=== PATIENT | male | born 2000 | race Caucasian/White ===

== ENCOUNTER 2022-05-02 10:00 | Emergency (ER) | payer OTHER, SELFPAY ==
[2022-05-02] MEDS ORDERED: KETOROLAC 30 MG/ML INJ ONE (10:49)
[2022-05-02] MEDS ORDERED: ONDANSETRON 4 MG/2 ML VIAL ONE (10:49)
[2022-05-02] MEDS ORDERED: NA CHLORIDE 0.9% 500 ML ONE (10:49)
--- NOTE | 2022-05-02 11:36 | RAD REPORT ---
EXAM DESCRIPTION: MRI - Lumbar Spine Mark Koch - 05/02/2022 11:27 am CLINICAL HISTORY: Lower back pain, infection suspected COMPARISON: None. TECHNIQUE: Sagittal T1-weighted, T2-weighted and T2-STIR weighted sequences were obtained. Axial T1 -weighted and heavily T2-weighted sequenceswere obtained through the lumbar disc levels. FINDINGS: Lumbar bodies are normal in height and alignment. No suspicious marrow signal. No paraspin al masses. Conus is normal with no clumping or thickening of the cauda equina. T12-L1 level: No significant findings. L1-2 level: No significant findings. L2-3 level: No significant findings. L3-4 level: No significant findings. L4-5 level: No significant findings. L5-S1 level: No significant findings. IMPRESSION: Lumbar spine MRI is within normal limits. Specifically, no evidence of discitis/osteomye litis.
[2022-05-02 12:05] LABS: Albumin 4.7 g/dL (3.4-5.0); Bilirubin Total 0.7 mg/dL (0.2-1.0); Potassium 3.5 mmol/L (3.5-5.1); Protein, Total 7.8 g/dL (6.4-8.2)
[2022-05-02 12:12] LABS: Absolute Lymphocytes (CBC) 0.2 K/uL (0.7-4.9); Hematocrit 47.1 % (39.6-49.0); Lymphocytes % 3.6 % (15.3-44.8); MCV 84.3 fL (80-100); MPV 9.1 fL (7.6-11.3); RBC Red Blood Cell Count 5.59 M/uL (4.33-5.43)
[2022-05-02 13:09] LABS: Urine Blood Negative (Negative); Urine Glucose Negative (Negative); Urine Protein Negative (Negative); Urine Specific Gravity >=1.030 (1.005-1.030)
[2022-05-02] MEDS ORDERED: HYDROCODONE/APAP 7.5/325 MG TAB ONE (13:45)
--- NOTE | 2022-05-02 14:46 | EDPHYS ---
Physician Documentation [facility] Name: Luisito Becker Age: 21 yrs Sex: Male : 2000 Arrival Date: 05/02/2022 Time: 10:02 Bed 24 Private MD: ED Physician Edilson Ramos HPI: 05/02 10:44 This 21 yrs old Male presents to ER via Ambulatory with complaints of Abdominal Pain, kdr Vomiting, Back Pain. 10:44 Patient states that he has had acute onset of low back pain that began this morning. He kdr has not had this kind of pain before. He denies any fall injury or trauma. He states he may have had a subjective fever. 17:00 Onset: The symptoms/episode began/occurred this morning. Severity of symptoms: At their kdr worst the symptoms were moderate in the emergency department the symptoms are unchanged. The patient has not experienced similar symptoms in the past. The patient has not recently seen a physician. Historical: - Allergies: 10:14 No Known Allergies; vg1 - PMHx: 10:14 Depressive disorder; Anxiety; vg1 - PSHx: 10:14 None; vg1 - Immunization history:: Client reports having NOT received the Covid vaccine. - Social history:: Smoking status: Patient reports the use of cigarette tobacco products, denies chronic smoking, but will smoke occasionally, Reported history of juuling and/or vaping. ROS: 17:00 Constitutional: Negative for fever, chills, and weight loss, Eyes: Negative for injury, kdr pain, redness, and discharge, ENT: Negative for injury, pain, and discharge, Neck: Negative for injury, pain, and swelling, Cardiovascular: Negative for chest pain, palpitations, and edema, Respiratory: Negative for shortness of breath, cough, wheezing, and pleuritic chest pain, Abdomen/GI: Negative for abdominal pain, nausea, vomiting, diarrhea, and constipation, : Negative for injury, bleeding, discharge, and swelling, MS/Extremity: Negative for injury and deformity, Skin: Negative for injury, rash, and discoloration, Neuro: Negative for headache, weakness, numbness, tingling, and seizure activity. Psych: Negative for depression, anxiety, suicide ideation, homicidal ideation, and hallucinations, Allergy/Immunology: Negative for hives, rash, and allergies, Endocrine: Negative for neck swelling, polydipsia, polyuria, polyphagia, and marked weight changes, Hematologic/Lymphatic: Negative for swollen nodes, abnormal bleeding, and unusual bruising. 17:00 Back: Positive for pain at rest, pain with movement. Exam: 17:27 Constitutional: This is a well developed, well nourished patient who is awake, alert, kdr and in no acute distress. Head/Face: Normocephalic, atraumatic. Eyes: Pupils equal round and reactive to light, extra-ocular motions intact. Lids and lashes normal. Conjunctiva and sclera are non-icteric and not injected. Cornea within normal limits. Periorbital areas with no swelling, redness, or edema. Neck: Trachea midline, no thyromegaly or masses palpated, and no cervical lymphadenopathy. Supple, full range of motion without nuchal rigidity, or vertebral point tenderness. No Meningismus. Chest/axilla: Normal chest wall appearance and motion. Nontender with no deformity. No lesions are appreciated. Cardiovascular: Regular rate and rhythm with a normal S1 and S2. No gallops, murmurs, or rubs. Normal PMI, no JVD. No pulse deficits. Respiratory: Lungs have equal breath sounds bilaterally, clear to auscultation and percussion. No rales, rhonchi or wheezes noted. No increased work of breathing, no retractions or nasal flaring. Abdomen/GI: Soft, non-tender, with normal bowel sounds. No distension or tympany. No guarding or rebound. No evidence of tenderness throughout. Skin: Warm, dry with normal turgor. Normal color with no rashes, no lesions, and no evidence of cellulitis. MS/ Extremity: Pulses equal, no cyanosis. Neurovascular intact. Full, normal range of motion. Neuro: Awake and alert, GCS 15, oriented to person, place, time, and situation. Cranial nerves II-XII grossly intact. Motor strength 5/5 in all extremities. Sensory grossly intact. Cerebellar exam normal. Normal gait. Psych: Awake, alert, with orientation to person, place and time. Behavior, mood, and affect are within normal limits. 17:27 Back: pain, that is moderate, of the low back area, ROM is painful, with flexion, normal spinal alignment noted, CVA tenderness, is absent, muscle spasm, is not present, Straight leg raises: pain bilaterally. Vital Signs: 10:13 BP 136 / 78; Pulse 86; Resp 18; Temp 98.1(O); Pulse Ox 100% on R/A; Weight 65.77 kg; vg1 Height 5 ft. 11 in. (180.34 cm); Pain 10/10; 11:52 BP 118 / 57; Pulse 75; Pulse Ox 100% ; ap3 13:35 BP 119 / 60; Pulse 63; Pulse Ox 100% on R/A; ap3 14:44 BP 110 / 51; Pulse 85; Pulse Ox 100% on R/A; ap3 10:13 Body Mass Index 20.22 (65.77 kg, 180.34 cm) vg1 MDM: 14:46 Patient medically screened. kdr 17:27 Data reviewed: vital signs, nurses notes, lab test result(s), radiologic studies. kdr Counseling: I had a detailed discussion with the patient and/or guardian regarding: the historical points, exam findings, and any diagnostic results supporting the discharge/admit diagnosis, lab results, radiology results, the need for outpatient follow up. 05/02 10:19 Order name: CBC with Diff; Complete Time: 12:20 kdr 05/02 10:19 Order name: CMP; Complete Time: 12:20 kdr 05/02 10:19 Order name: Lipase; Complete Time: 12:20 kdr 05/02 10:35 Order name: MRI Lumbar Spine wo Con; Complete Time: 12:20 kdr 05/02 13:09 Order name: Urine Dipstick-Ancillary; Complete Time: 13:15 EDMS 05/02 10:19 Order name: IV Saline Lock; Complete Time: 10:32 kdr 05/02 10:19 Order name: Labs collected and sent; Complete Time: 11:07 kdr Administered Medications: 10:49 Drug: Ketorolac 15 mg Route: IVP; Site: right forearm; ap3 13:18 Follow up: Response: No adverse reaction ap3 10:49 Drug: NS 0.9% 500 ml Route: IV; Rate: bolus; Site: right forearm; ap3 15:06 Follow up: IV Status: Completed infusion ap3 10:49 Drug: Zofran (Ondansetron) 4 mg Route: IVP; Site: right forearm; ap3 13:18 Follow up: Response: No adverse reaction ap3 15:06 Follow up: Response: No adverse reaction ap3 13:43 Drug: [place] (HYDROcodone-acetaminophen) (7.5 mg-325 mg) 1 tabs Route: PO; ap3 15:06 Follow up: Response: No adverse reaction ap3 Disposition Summary: 05/02/22 14:46 Discharge Ordered Location: Home kdr Problem: new kdr Symptoms: have improved kdr Condition: Stable kdr Diagnosis - Low back pain kdr Followup: kdr - With: Private Physician - When: 2 - 3 days - Reason: If symptoms return, Further diagnostic work-up, Recheck today's complaints, Continuance of care, Re-evaluation by your physician Discharge Instructions: - Discharge Summary Sheet kdr - Acute Back Pain, Adult kdr - Musculoskeletal Pain kdr - Back Exercises, [id number] kdr Forms: - Medication Reconciliation Form kdr - Thank You Letter kdr Prescriptions: - Ibuprofen 600 mg Oral Tablet - take 1 tablet by ORAL route every 6 hours As needed take with food; 30 tablet; kdr Refills: 0, Product Selection Permitted Signatures: Dispatcher [employer] EDMS Edilson Ramos MD MD kdr Eva Sesay RN RN ap3 Ludmila Moreno RN RN vg1 Corrections: (The following items were deleted from the chart) 12:55 10:34 Spine Lumbar Wo Con+CT.RAD.BRZ ordered. EDMS EDMS
--- NOTE | 2022-05-02 14:46 | ER ---
Nurse's Notes [facility] Name: Luisito Becker Age: 21 yrs Sex: Male : 2000 Arrival Date: 05/02/2022 Time: 10:02 Bed 24 Private MD: Diagnosis: Low back pain Presentation: 05/02 10:13 Chief complaint: Patient states: back pain and NV began this morning, denies ABD pain, vg1 denies burning upon urination or blood in urine, last BM was yesterday. Coronavirus screen: Vaccine status: Patient reports being unvaccinated. Client denies travel out of the [place] in the last 14 days. Ebola Screen: Patient denies exposure to infectious person. Patient denies travel to an Ebola-affected area in the 21 days before illness onset. Initial Sepsis Screen: Does the patient meet any 2 criteria? No. Patient's initial sepsis screen is negative. Does the patient have a suspected source of infection? No. Patient's initial sepsis screen is negative. Risk Assessment: Do you want to hurt yourself or someone else? Patient reports no desire to harm self or others. Onset of symptoms was May 02, 2022. 10:13 Method Of Arrival: Ambulatory vg1 10:13 Acuity: JENNIFER 3 vg1 Triage Assessment: 10:14 General: Appears uncomfortable, Behavior is cooperative, anxious. Pain: Complains of vg1 pain in back. GI: Abdomen is flat, Reports nausea, vomiting. Historical: - Allergies: 10:14 No Known Allergies; vg1 - PMHx: 10:14 Depressive disorder; Anxiety; vg1 - PSHx: 10:14 None; vg1 - Immunization history:: Client reports having NOT received the Covid vaccine. - Social history:: Smoking status: Patient reports the use of cigarette tobacco products, denies chronic smoking, but will smoke occasionally, Reported history of juuling and/or vaping. Screenin:51 Abuse screen: Denies threats or abuse. Nutritional screening: No deficits noted. ap3 Tuberculosis screening: No symptoms or risk factors identified. Fall Risk No fall in past 12 months (0 pts). Assessment: 10:50 General: Appears distressed, uncomfortable, Behavior is anxious, restless. Pain: ap3 Complains of pain in back Pain currently is 10 out of 10 on a pain scale. Neuro: Level of Consciousness is awake, alert, obeys commands, Oriented to person, place, time, situation. Cardiovascular: Patient's skin is warm and dry. Respiratory: Airway is patent Respiratory effort is even, unlabored. Musculoskeletal: Reports pain in low back area. 10:51 GI: Bowel sounds present X 4 quads. Abd is non tender Reports nausea, vomiting. ap3 11:48 Reassessment: Patient and/or family updated on plan of care and expected duration. Pain ap3 level reassessed. Patient is alert, oriented x 3, equal unlabored respirations, skin warm/dry/pink. Patient states feeling better. Patient states symptoms have improved. 13:35 Reassessment: No changes from previously documented assessment. Patient and/or family ap3 updated on plan of care and expected duration. Pain level reassessed. Patient is alert, oriented x 3, equal unlabored respirations, skin warm/dry/pink. 14:44 Reassessment: No changes from previously documented assessment. Patient and/or family ap3 updated on plan of care and expected duration. Pain level reassessed. Vital Signs: 10:13 BP 136 / 78; Pulse 86; Resp 18; Temp 98.1(O); Pulse Ox 100% on R/A; Weight 65.77 kg; vg1 Height 5 ft. 11 in. (180.34 cm); Pain 10/10; 11:52 BP 118 / 57; Pulse 75; Pulse Ox 100% ; ap3 13:35 BP 119 / 60; Pulse 63; Pulse Ox 100% on R/A; ap3 14:44 BP 110 / 51; Pulse 85; Pulse Ox 100% on R/A; ap3 10:13 Body Mass Index 20.22 (65.77 kg, 180.34 cm) vg1 ED Course: 10:02 Patient arrived in ED. mr 10:05 Edilson Ramos MD is Attending Physician. kdr 10:14 Triage completed. vg1 10:14 Arm band placed on. vg1 10:16 Eva Sesay, MORELIA is Primary Nurse. ap3 10:39 Inserted saline lock: 22 gauge in right forearm, using aseptic technique. ap3 10:51 Patient has correct armband on for positive identification. Bed in low position. Call ap3 light in reach. Side rails up X 1. Adult w/ patient. Pulse ox on. NIBP on. Door closed. Noise minimized. Warm blanket given. 10:51 No provider procedures requiring assistance completed. ap3 11:14 MRI Lumbar Spine wo Con In Process Unspecified. EDMS 14:33 ED physician to see patient. ap3 15:05 IV discontinued. ap3 Administered Medications: 10:49 Drug: Ketorolac 15 mg Route: IVP; Site: right forearm; ap3 13:18 Follow up: Response: No adverse reaction ap3 10:49 Drug: NS 0.9% 500 ml Route: IV; Rate: bolus; Site: right forearm; ap3 15:06 Follow up: IV Status: Completed infusion ap3 10:49 Drug: Zofran (Ondansetron) 4 mg Route: IVP; Site: right forearm; ap3 13:18 Follow up: Response: No adverse reaction ap3 15:06 Follow up: Response: No adverse reaction ap3 13:43 Drug: [place] (HYDROcodone-acetaminophen) (7.5 mg-325 mg) 1 tabs Route: PO; ap3 15:06 Follow up: Response: No adverse reaction ap3 Medication: 15:05 VIS not applicable for this client. ap3 Outcome: 14:46 Discharge ordered by . kdr 15:05 Discharged to home ambulatory, with family. ap3 15:05 Condition: good 15:05 Discharge instructions given to patient, Instructed on discharge instructions, follow up and referral plans. medication usage, Demonstrated understanding of instructions, follow-up care, medications, Prescriptions given X 1. 15:06 Patient left the ED. ap3 Signatures: Dispatcher [employer] EDMT Edilson Ramos MD MD kdr RiverRosanne jean mr Eva Sesay, RN RN ap3 Ludmila Moreno, RN RN vg1
[2022-05-02 15:11] VITALS: TEMP 98.1; O2SAT 100
[2022-05-02 15:15] VITALS: BP 110/51
== END 2022-05-02 15:06 | disposition home or self-care (01) ==
LOC: ER 10:00
DX: M54.50 Low back pain, unspecified (principal); R11.10 Vomiting, unspecified; F32.A Depression, unspecified
CPT/HCPCS: 36415; 72148; 80053; 81003; 83690; 85025; 96361; 96374; 96375; 99284; J2405; J7040